=== PATIENT | male | born 1980 | race Two or more races ===

== ENCOUNTER 2020-07-14 12:07 | Emergency (ER) | payer OTHER ==
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
--- NOTE | 2020-07-15 13:34 | US ---
Left lower extremity deep venous ultrasound: Duplex and color Doppler evaluation was obtained of the left common femoral, proximal greater saphenous, superficial femoral, popliteal, posterior tibial and peroneal veins. Right common femoral vein was also evaluated. Comparison: No prior venous imaging is available. Findings: Minimal Doppler blood flow noted within the peroneal vein. Findings are suspicious for partially occluding thrombus. Other veins show normal phasic flow, augmentation and compression. Impression: 1. Decreased flow within the peroneal veins suspicious for partially occluding thrombus. 2. No other findings of deep venous thrombosis are seen within the left lower extremity or within the right common femoral vein. Diagnostic code #5 This report was dictated in MDT I agree with preliminary report from [email or web address], finalized on 07/14/20, 3:11 PM Central Daylight Time
== END 2020-07-14 15:00 | disposition home or self-care (01) ==
LOC: JD.ED 12:07
DX: I82.452 Acute embolism and thrombosis of left peroneal vein (principal); Z79.899 Other long term (current) drug therapy
CPT/HCPCS: 93971-26-LT; 93971-LT; 99283; 99283-25